=== PATIENT | female | born 1990 ===

== ENCOUNTER 2022-04-10 12:53 | Outpatient (CLI) | payer OTHER | END 2022-04-10 14:15 | disposition home or self-care (01) | LOC: PRENATAL 12:53 | PROVIDERS: ATTEND Obstetrics & Gynecology Maternal & Fetal Medicine | DX: Z76.1 Encounter for health supervision and care of foundling (principal) ==

== ENCOUNTER 2022-05-11 15:09 | Outpatient (CLI) | payer OTHER | END 2022-05-11 17:10 | disposition home or self-care (01) | LOC: PRENATAL 15:09 | PROVIDERS: ATTEND Obstetrics & Gynecology Maternal & Fetal Medicine | DX: O30.90 Multiple gestation, unspecified, unspecified trimester (principal); O35.3XX0 Maternal care for (suspected) damage to fetus from viral disease in mother, not applicable or unspecified; O35.9XX0 Maternal care for (suspected) fetal abnormality and damage, unspecified, not applicable or unspecified; O24.419 Gestational diabetes mellitus in pregnancy, unspecified control; O60.00 Preterm labor without delivery, unspecified trimester; Z3A.19 19 weeks gestation of pregnancy ==

== ENCOUNTER 2022-07-09 09:33 | Outpatient (CLI) | payer OTHER | END 2022-07-09 10:35 | disposition home or self-care (01) | LOC: PRENATAL 09:33 | PROVIDERS: ATTEND Obstetrics & Gynecology Maternal & Fetal Medicine | DX: O26.849 Uterine size-date discrepancy, unspecified trimester (principal); O30.90 Multiple gestation, unspecified, unspecified trimester; O60.00 Preterm labor without delivery, unspecified trimester; O24.419 Gestational diabetes mellitus in pregnancy, unspecified control; Z3A.27 27 weeks gestation of pregnancy ==

== ENCOUNTER 2022-08-08 08:04 | Outpatient (CLI) | payer OTHER | END 2022-08-08 09:36 | disposition home or self-care (01) | LOC: PRENATAL 08:04 | PROVIDERS: ATTEND Obstetrics & Gynecology Maternal & Fetal Medicine | DX: O26.849 Uterine size-date discrepancy, unspecified trimester (principal); O60.00 Preterm labor without delivery, unspecified trimester; O30.90 Multiple gestation, unspecified, unspecified trimester; Z3A.31 31 weeks gestation of pregnancy ==

== ENCOUNTER 2022-09-05 08:16 | Outpatient (CLI) | payer OTHER | END 2022-09-05 09:22 | disposition home or self-care (01) | LOC: PRENATAL 08:16 | PROVIDERS: ATTEND Obstetrics & Gynecology Maternal & Fetal Medicine | DX: O26.849 Uterine size-date discrepancy, unspecified trimester (principal); O60.00 Preterm labor without delivery, unspecified trimester; O36.8199 Decreased fetal movements, unspecified trimester, other fetus; O30.90 Multiple gestation, unspecified, unspecified trimester; O24.419 Gestational diabetes mellitus in pregnancy, unspecified control; Z3A.35 35 weeks gestation of pregnancy ==